=== PATIENT | male | born 1990 | race Caucasian/White ===

== ENCOUNTER 2023-10-12 10:52 | Emergency (ER) | payer OTHER, SELFPAY ==
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
[2023-10-12 11:26] VITALS: BP 149/85; PULSE 68; RESP 18; TEMP 36.6; O2SAT 96; BMI 33.5
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
[2023-10-12 12:57] VITALS: BP 149/85; PULSE 68; RESP 18; TEMP 36.6; O2SAT 96
== END 2023-10-12 12:59 | disposition home or self-care (01) ==
LOC: HO.ED 12:58
PROVIDERS: Emergency Provider Student in an Organized Health Care Education/Training Program
DX: S39.012A Strain of muscle, fascia and tendon of lower back, initial encounter (principal); S29.012A Strain of muscle and tendon of back wall of thorax, initial encounter; V47.5XXA Car driver injured in collision with fixed or stationary object in traffic accident, initial encounter; Y93.9 Activity, unspecified; Y92.410 Unspecified street and highway as the place of occurrence of the external cause; Y99.9 Unspecified external cause status
CPT/HCPCS: 72072; 72100; 99282; 99283